=== PATIENT | female | born 1970 | race American Indian/Alaskan Native ===

== ENCOUNTER 2020-06-25 08:10 | Emergency (ER) | payer SELFPAY ==
[2020-06-25 08:17] VITALS: BP 143/92
--- NOTE | 2020-06-25 09:42 | Emergency Department Report ---
ED Eye Problem HPI - General Chief complaint: Eye Problems Stated complaint: LFT EYE PINK Time Seen by Provider: 06/25/20 09:38 Source: patient Mode of arrival: Ambulatory Limitations: No Limitations - History of Present Illness Initial comments: Patient is a 50-year-old female presents emergency room complaints of left eye irritation, itching, redness that began yesterday. She states this morning she woke up with mucus drainage and crusting. She denies anyone else with the same thing. She denies getting anything into the eye. She denies any vision changes. She has a past medical history of hypertension and hypothyroidism. No allergies to medications. - Related Data Previous Rx's Medication Instructions Recorded Last Taken Type Polymyxin B Sulf/Trimethoprim 1 drop OS Q3HR 7 Days #1 bottle 06/25/20 Unknown Rx [Polytrim Eye Drops] ED Review of Systems ROS: Stated complaint: LFT EYE PINK Other details as noted in HPI Comment: All other systems reviewed and negative ED Past Medical Hx - Past Medical History Previous Medical History?: Yes Hx Hypertension: Yes Additional medical history: hypothyroidism - Surgical History Past Surgical History?: No - Medications Home Medications: Home Medications Medication Instructions Recorded Confirmed Last Taken Type Polymyxin B Sulf/Trimethoprim 1 drop OS Q3HR 7 Days #1 bottle 06/25/20 Unknown Rx [Polytrim Eye Drops] ED Physical Exam - General Limitations: No Limitations General appearance: alert, in no apparent distress - Head Head exam: Present: atraumatic, normocephalic - Eye Eye exam: Present: PERRL, EOMI, conjunctival injection (mild left with small amount of surrounding crusted mucus drainage, no eyelid edema or erythema, no visualized foreign body). Absent: periorbital swelling, periorbital tenderness Pupils: Present: normal accommodation - ENT ENT exam: Present: mucous membranes moist - Neurological Exam Neurological exam: Present: alert, oriented X3 - Psychiatric Psychiatric exam: Present: normal affect, normal mood - Skin Skin exam: Present: warm, dry, intact ED Course Vital Signs 06/25/20 08:13 Temperature 98.4 F Pulse Rate 82 Respiratory 18 Rate Blood Pressure 143/92 O2 Sat by Pulse 95 Oximetry ED Medical Decision Making - Medical Decision Making Patient is a 50-year-old female presents emergency room complaints of left eye irritation, itching, redness that began yesterday. She states this morning she woke up with mucus drainage and crusting. She denies anyone else with the same thing. She denies getting anything into the eye. She denies any vision changes. She has a past medical history of hypertension and hypothyroidism. No allergies to medications. VSS. on exam: mild left with small amount of surrounding crusted mucus drainage, no eyelid edema or erythema, no visualized foreign body. Examination appears consistent with mild conjunctivitis. No clinical signs of hordeolum, chalazion, dacryocystitis, orbital or preseptal cellulitis. Patient given prescription for antibiotic eyedrops. Advised patient Please use medication as prescribed. Avoid rubbing the eye. Please wash your bed sheets and pillowcases. Wash your hands frequently. This is contagious. Follow-up with a primary care doctor. Follow-up with eye doctor if symptoms are not improving. Return to the emergency room for any new or worsening symptoms. Critical care attestation.: If time is entered above; I have spent that time in minutes in the direct care of this critically ill patient, excluding procedure time. ED Disposition Clinical Impression: Conjunctivitis Qualifiers: Conjunctivitis type: acute Acute conjunctivitis type: unspecified Laterality: left Qualified Code(s): H10.32 - Unspecified acute conjunctivitis, left eye Disposition: DC- TO HOME OR SELFCARE Is pt being admited?: No Does the pt Need Aspirin: No Condition: Stable Instructions: Conjunctivitis (ED) Additional Instructions: Please use medication as prescribed. Avoid rubbing the eye. Please wash your bed sheets and pillowcases. Wash your hands frequently. This is contagious. Follow-up with a primary care doctor. Follow-up with eye doctor if symptoms are not improving. Return to the emergency room for any new or worsening symptoms. Prescriptions: Polymyxin B Sulf/Trimethoprim [Polytrim Eye Drops] 1 drop OS Q3HR 7 Days #1 bottle Referrals: APRIL SUMMERS MD [Primary Care Provider] - 2-3 Days MAICO CHRISTIANSON MD [Staff Physician] - 2-3 Days [facility] [place] [facility] [place] - 2-[address] [facility] [Outside] - 2-3 Days [facility] [Provider Group] - 2-3 Days Forms: Work/School Release Form(ED) Time of Disposition: 09:40 Print Language: MALAY
== END 2020-06-25 09:53 | disposition home or self-care (01) ==
LOC: ED 08:10
DX: H10.32 Unspecified acute conjunctivitis, left eye (principal); I10 Essential (primary) hypertension; E03.9 Hypothyroidism, unspecified; Z79.899 Other long term (current) drug therapy; Z98.890 Other specified postprocedural states
CPT/HCPCS: 99281